=== PATIENT | male | born 1945 | race Caucasian/White ===

== ENCOUNTER 2023-10-18 06:14 | Day surgery (SDC) | payer MEDICARE, BC ==
[2023-10-11 11:28] LABS: BASOPHILS # (AUTO) 0.1 X10'3 (0-0.2); BASOPHILS % (AUTO) 0.9 % (0-1); EOSINOPHILS # (AUTO) 0.2 X10'3 (0-0.9); EOSINOPHILS % (AUTO) 2.4 % (0-6); LYMPHOCYTES # (AUTO) 1.4 X10'3 (1.1-4.8); LYMPHOCYTES % (AUTO) 18.7 % (21-51); MEAN CORPUSCULAR HEMOGLOBIN 31.8 PG (27.0-31.0); MEAN CORPUSCULAR HGB CONC 33.4 g/dL (33.0-36.5); MEAN CORPUSCULAR VOLUME 95.2 FL (78-98); MEAN PLATELET VOLUME 7.6 FL (7.4-10.4); MONOCYTES # (AUTO) 0.7 X10'3 (0-0.9); MONOCYTES % (AUTO) 8.8 % (2-12); NEUTROPHILS # (AUTO) 5.3 X10'3 (1.8-7.7); NEUTROPHILS % (AUTO) 69.2 % (42-75); PRE OP HEMATOCRIT 45.1 % (42.0-52.0); PRE OP HEMOGLOBIN 15.1 g/dL (14.0-17.9); PRE OP PLATELET COUNT 352 X10'3 (140-440); PRE OP WHITE BLOOD COUNT 7.7 10'3 (4.8-10.8); RED BLOOD COUNT 4.73 X10'6 (4.70-6.10); RED CELL DISTRIBUTION WIDTH 14.2 % (11.5-14.5)
[2023-10-11 11:37] LABS: ALBUMIN 3.5 G/DL (3.4-5.0); ALBUMIN/GLOBULIN RATIO 1.1 (1.1-1.5); ALKALINE PHOSPHATASE 95 IU/L (46-116); BLOOD UREA NITROGEN 17 MG/DL (7-18); CALCIUM 9.3 MG/DL (8.5-10.1); CHLORIDE 105 MMOL/L (99-107); CREATININE 0.85 MG/DL (0.60-1.10); PRE OP ALT 41 U/L (30-65); PRE OP ANION GAP 6 (8-16); PRE OP AST 31 U/L (10-37); PRE OP BILIRUB, TOTAL 0.3 MG/DL (0.0-1.0); PRE OP GLUCOSE 72 MG/DL (70-104); PRE OP SODIUM 137 MMOL/L (135-145); TOTAL CARBON DIOXIDE 25.8 MMOL/L (24-32); TOTAL PROTEIN 6.7 G/DL (6.4-8.2); eGFR 87 ML/MIN
[2023-10-18] VITALS (18 sets, daily range): BP systolic 120–160; BP diastolic 67–87; PULSE 71–89; RESP 12–20; TEMP 97.6; O2SAT 92–100
[~2023-10-18] VITALS: Ht 175.3 cm; Wt 65.2 kg
[~2023-10-18 06:14] MED LIST: ASPI-41 PO; ATOR-2 PO; CHOL100046 PO; FINA5TAB12 PO; FLUT1BLS3 INH; LEVO50TA PO; VITA-3 PO; VITC500T PO; albuterol 2.5 MG/3 ML nebule NEB ONE; cefazolin 2gm/D5W 100mL 100 ML IV ONE; famotidine 20mg tablet PO ONE; ringers solution, lacted 1,000 ML IV SCH
[2023-10-18] MEDS ORDERED: LIDOcaine 1% 30ml preserv. free vial ONE (06:43)
[2023-10-18] MEDS ORDERED: BUPIVAcaine/PF 2.5mg/ml (0.25%) 10ml vial ONE (06:43)
[2023-10-18] MEDS ORDERED: tamsulosin 0.4mg capsule PO ONE (07:35)
[2023-10-18] MEDS ORDERED: fentaNYL/PF 50MCG/1 ML 2ML syringe ONE (07:53)
[2023-10-18] MEDS ORDERED: midazolam 1 mg/ML 2ml injection ONE (07:53)
[2023-10-18] MEDS ORDERED: dexamethasone sod phosphate 4mg/ml inj. ONE (07:54)
[2023-10-18] MEDS ORDERED: LIDOcaine 2% (20mg/ml) 5ml vial ONE (07:54)
[2023-10-18] MEDS ORDERED: rocuronium 10mg/ml inj IV ONE (07:54)
[2023-10-18] MEDS ORDERED: propofol inj 20 ML IV ONE (07:54)
[2023-10-18] MEDS ORDERED: neostigmine methylsulfate 1 MG/ML 10ml vial ONE (07:55)
[2023-10-18] MEDS ORDERED: glycopyrrolate 0.2mg/ml inj ONE (07:55)
[2023-10-18] MEDS ORDERED: sevoflurane 250ml liquid IH ONE (08:02)
[2023-10-18] MEDS ORDERED: ondansetron/PF 4mg/2ml inj ONE (08:02)
[2023-10-18] MEDS ORDERED: desflurane 240ml liquid inh. IH ONE (08:02)
[2023-10-18] MEDS ORDERED: ondansetron/PF 4mg/2ml inj IV PRN (08:05)
[2023-10-18] MEDS ORDERED: ringers solution, lacted 1,000 ML IV SCH (08:05)
[2023-10-18] MEDS ORDERED: hydrALAZINE 20mg/ml inj. IV PRN (08:05)
[2023-10-18] MEDS ORDERED: labetalol 5mg/ml 20ml inj. IV PRN (08:05)
[2023-10-18] MEDS ORDERED: morphine 2 MG/ML inj. syringe IV PRN (08:05)
[2023-10-18] MEDS ORDERED: morphine 4 MG/ML inj SYRINge IV PRN (08:05)
[2023-10-18] MEDS ORDERED: fentaNYL/PF 50MCG/1 ML 2ML syringe IV PRN ×2 (08:05)
[2023-10-18] MEDS ORDERED: HYDROcodone/acetaminophen 5mg/325mg tablet PO PRN (09:15)
[2023-10-18] MEDS ORDERED: LidoCAINE 2% Topical Jelly 11mL syringe TOP ONE (11:15)
== END 2023-10-18 11:58 | disposition home or self-care (01) ==
LOC: PAS 06:14
PROVIDERS: ATTEND Surgery
DX: K40.90 Unilateral inguinal hernia, without obstruction or gangrene, not specified as recurrent (principal); J44.9 Chronic obstructive pulmonary disease, unspecified; I25.10 Atherosclerotic heart disease of native coronary artery without angina pectoris; N40.0 Benign prostatic hyperplasia without lower urinary tract symptoms; E03.9 Hypothyroidism, unspecified; E78.5 Hyperlipidemia, unspecified; F17.210 Nicotine dependence, cigarettes, uncomplicated; Z95.5 Presence of coronary angioplasty implant and graft; Z95.2 Presence of prosthetic heart valve; Z79.899 Other long term (current) drug therapy; Z79.82 Long term (current) use of aspirin
CPT/HCPCS: 36415; 49650; 80053; 82948; 85025; 93005; C1781; J0690; J1100; J2250; J2270; J2405; J2704; J2710; J3010; J3490; J7030; J7120; Z7506; Z7508; Z7512; A4215; A4314; A4618